=== PATIENT | female | born 1975 | race Caucasian/White ===

== ENCOUNTER 2019-08-28 21:15 | Emergency (ER) | payer OTHER ==
[~2019-08-28] VITALS: Ht 160 cm; Wt 63.0 kg
[2019-08-28] MEDS ORDERED: ZOLOFT100 MG PO (21:30)
[2019-08-28] MEDS ORDERED: LOMOTIL TABLET1 EACH PO (23:35)
== END 2019-08-29 00:14 | disposition home or self-care (01) ==
LOC: ED 21:15
DX: R19.7 Diarrhea, unspecified (principal); F32.9 Major depressive disorder, single episode, unspecified; F17.200 Nicotine dependence, unspecified, uncomplicated; Z79.899 Other long term (current) drug therapy
CPT/HCPCS: 80053; 85025; 96360; 96361; 99284-25; J7030

== ENCOUNTER 2021-06-22 23:36 | Emergency (ER) | payer OTHER ==
[~2021-06-22] VITALS: Ht 160 cm; Wt 62.3 kg
[~2021-06-22 23:36] MED LIST: BACTRIM DS TAB1 EACH PO; LOMOTIL TABLET1 EACH PO; MINIPRESS1 MG PO; OMEPRAZOLE20 MG PO; SEROQUEL50 MG PO; VISTARIL50 MG PO; ZOLOFT100 MG PO
--- OUTSIDE RECORDS SUMMARY | 2021-06-22 23:44 | XMS ---
PreManage Notification: JOY LOZANO Security Instructor Of Nursing Events No recent Security Events currently on file CRITERIA MET - ED - Positive COVID-19 Lab Result - [facility] CARE PROVIDERS SNOW CHAU Nurse Practitioner: Current PHONE: Unknown Jaqueline Robles Nurse Practitioner: Current PHONE: [phone] [facility] Federally Qualified 07/[facility]/2017-[facility] ([facility]) PHONE: [phone] Stefania Barrientos Manager Management/Desktop Architect Current [facility] TEAM PHONE: Unknown Ruben has no Care Guidelines for this patient. Janet VISIT COUNT (12 MO.) 1 ROLAND Steel TOTAL 1 NOTE: Visits indicate total known visits. ED/UCC VISIT TRACKING (12 MO.) 06/22/2021 23:37 [facility] [place] TYPE: Emergency COMPLAINT: - LEFT BREAST AND ARMPIT PAIN INPATIENT VISIT TRACKING (12 MO.) No inpatient visits to display in this time frame [id number]
[2021-06-22] MEDS ORDERED: OXYCODON-ACETA1 EAC2 PO (23:50)
[2021-06-23] MEDS ORDERED: HYDROCODON-ACE1 EAC8 PO (00:25)
[2021-06-23] MEDS ORDERED: ONDANSETRON ODT8 MG PO (00:25)
[2021-07-03] MEDS ORDERED: IBUPROFEN800 MG PO (14:58)
[2021-07-04] MEDS ORDERED: IBUPROFEN600 MG PO (11:52)
[2021-07-04] MEDS ORDERED: HYDROCODON-ACE1 EA10 PO (11:52)
[2021-07-04] MEDS ORDERED: ACETAMINOPHEN500 MG PO (11:52)
== END 2021-06-23 00:51 | disposition home or self-care (01) ==
LOC: ED 23:36
DX: N64.4 Mastodynia (principal); F32.9 Major depressive disorder, single episode, unspecified; Z79.891 Long term (current) use of opiate analgesic; Z79.899 Other long term (current) drug therapy
CPT/HCPCS: 99283; A9270

== ENCOUNTER 2021-07-18 22:18 | Emergency (ER) | payer OTHER ==
[~2021-07-18] VITALS: Ht 160 cm; Wt 62.1 kg
[~2021-07-18 22:18] MED LIST changes: +ACETAMINOPHEN500 MG PO; +HYDROCODON-ACE1 EA10 PO; +HYDROCODON-ACE1 EAC8 PO; +IBUPROFEN600 MG PO; +IBUPROFEN800 MG PO; +ONDANSETRON ODT8 MG PO; +OXYCODON-ACETA1 EAC2 PO
--- OUTSIDE RECORDS SUMMARY | 2021-07-18 22:24 | XMS ---
PreManage Notification: JOY LOZANO Security Hollow Tile Partition Erector Events No recent Security Events currently on file CRITERIA MET - [facility] - 2 Visits in 30 Days CARE PROVIDERS SNOW CHAU Nurse Practitioner: Family Current PHONE: Unknown Jaqueline Robles Nurse Practitioner: Current PHONE: [phone] [facility]: Federally Qualified 07/02/2017-[facility] ([facility]) PHONE: [phone] Stefania Barrientos Bird Raiser/Clinical Partner Current [facility] TEAM PHONE: Unknown Ruben has no Care Guidelines for this patient. Janet VISIT COUNT (12 MO.) 2 ROLAND Steel TOTAL 2 NOTE: Visits indicate total known visits. ED/UCC VISIT TRACKING (12 MO.) 07/18/2021 22:18 [facility] [place] TYPE: Emergency COMPLAINT: - OVERDOSE 06/22/2021 23:[address] [facility] [place] TYPE: Emergency COMPLAINT: - LEFT BREAST AND ARMPIT PAIN DIAGNOSES: - Other intermediate (current) drug therapy - Major depressive disorder, single episode, unspecified - lobsterman (current) use of opiate analgesic - Mastodynia INPATIENT VISIT TRACKING (12 MO.) No inpatient visits to display in this time frame [id number]
--- NOTE | 2021-07-21 17:18 | EKG ---
[facility] [address] [place] [address] Signed Normal sinus rhythm ST \T\ T wave abnormality, consider anterolateral ischemia Prolonged QT Abnormal ECG When compared with ECG of 30-MAY-2021 08:57, T wave inversion more evident in Inferior leads T wave inversion now evident in Anterolateral leads Confirmed by CAROL GUAMAN MD ([id number]) on 07/21/2021 5:18:43 PM Electronically Signed By: CAROL GUAMAN MD 07/21/21 1718 PATIENT NAME: JOY LOZANO Electrocardiogram DATE OF : 79 PHYSICIAN: CAROL GUAMAN MD REPORT #: [id number] REPORT IS CONFIDENTIAL AND NOT TO BE RELEASED WITHOUT AUTHORIZATION
--- NOTE | 2021-07-21 17:19 | EKG ---
[facility] [address] [facility] [place] [address] Signed Normal sinus rhythm with sinus arrhythmia Nonspecific T wave abnormality Prolonged QT Abnormal ECG When compared with ECG of 18-JUL-2021 22:25, (Unconfirmed) Vent. rate has decreased BY 34 BPM Nonspecific T wave abnormality has replaced inverted T waves in Inferior leads T wave inversion less evident in Anterolateral leads Confirmed by CAROL GUAMAN MD ([id number]) on 07/21/2021 5:18:50 PM Electronically Signed By: CAROL GUAMAN MD 07/21/21 1719 PATIENT NAME: JOY LOZANO Electrocardiogram DATE OF : [birth year] PHYSICIAN: CAROL GUAMAN MD REPORT #: [id number] REPORT IS CONFIDENTIAL AND NOT TO BE RELEASED WITHOUT AUTHORIZATION
== END 2021-07-19 11:38 | disposition home or self-care (01) ==
LOC: ED 22:18
DX: T43.592A Poisoning by other antipsychotics and neuroleptics, intentional self-harm, initial encounter (principal); T44.6X2A Poisoning by alpha-adrenoreceptor antagonists, intentional self-harm, initial encounter; F32.A Depression, unspecified; Z85.3 Personal history of malignant neoplasm of breast; F17.200 Nicotine dependence, unspecified, uncomplicated; Z91.041 Radiographic dye allergy status; Z79.899 Other long term (current) drug therapy; Z79.891 Long term (current) use of opiate analgesic; Z20.822 Contact with and (suspected) exposure to COVID-19
CPT/HCPCS: 36415; 80053; 81001; 84703; 85025; 85610; 87502; 93005; 93010; 99285-25; A9270; G0480; J7030; U0003

== ENCOUNTER 2021-07-21 15:19 | Emergency (ER) | payer OTHER ==
[~2021-07-21] VITALS: Ht 160 cm; Wt 62.6 kg
--- OUTSIDE RECORDS SUMMARY | 2021-07-21 15:29 | XMS ---
PreManage Notification: JOY LOZANO Security Automobile Mechanic Events No recent Security Events currently on file CRITERIA MET - [facility] - 2 Visits in 30 Days CARE PROVIDERS ALEX BERG Physician V Block Saw Operator 07/20/2021-Current PHONE: [phone] SNOW CHAU Nurse Practitioner: Current PHONE: Unknown Jaqueline Robles Nurse Practitioner: Current PHONE: [phone] [facility]: Federally Qualified 07/02/2017-[facility] ([facility] PHONE: [phone] Stefania Barrientos Primer Inspector/Edge Inker Uppers [facility] PHONE: Unknown Ruben has no Care Guidelines for this patient. EBrittaDBritta VISIT COUNT (12 MO.) 3 ROLAND Steel TOTAL 3 NOTE: Visits indicate total known visits. ED/UCC VISIT TRACKING (12 MO.) 07/21/2021 15:20 [facility] [place] TYPE: Emergency COMPLAINT: - SUICIDAL IDEATIONS 07/18/2021 22:18 [facility] [place] TYPE: Emergency COMPLAINT: - OVERDOSE DIAGNOSES: - Radiographic dye allergy status - Poisoning by other antipsychotics and neuroleptics, accidental (unintentional), initial encounter - Nicotine dependence, unspecified, uncomplicated - Depression, unspecified - long term acute care registered nurse (current) use of opiate analgesic - Other terminal supervisor (current) drug therapy - Poisoning by other antipsychotics and neuroleptics, intentional self-harm, initial encounter - Personal history of malignant neoplasm of breast - Poisoning by alpha-adrenoreceptor antagonists, intentional self-harm, initial encounter - Contact with and (suspected) exposure to COVID-19 06/22/2021 23:37 [facility] [place] TYPE: Emergency COMPLAINT: - LEFT BREAST AND ARMPIT PAIN DIAGNOSES: - Other usp (current) drug therapy - Major depressive disorder, single episode, unspecified - shelter (current) use of opiate analgesic - Mastodynia INPATIENT VISIT TRACKING (12 MO.) No inpatient visits to display in this time frame [id number]
--- NOTE | 2021-07-24 14:07 | EKG ---
[facility] [address] [facility] [place], [place] [address] Signed Sinus bradycardia with sinus arrhythmia Otherwise normal ECG No previous ECGs available Confirmed by CAROL GUAMAN MD ([id number]) on 07/24/2021 2:06:42 PM Electronically Signed By: CAROL GUAMAN MD 07/24/21 1407 PATIENT NAME: CARLO MEDINAISTHAYESJOY JAMMIE Electrocardiogram DATE OF : [birth year] PHYSICIAN: CAROL GUAMAN MD REPORT #: [id number] REPORT IS CONFIDENTIAL AND NOT TO BE RELEASED WITHOUT AUTHORIZATION
== END 2021-07-22 11:16 ==
LOC: ED 15:19
DX: S60.221A Contusion of right hand, initial encounter (principal); R45.851 Suicidal ideations; W22.8XXA Striking against or struck by other objects, initial encounter; Z85.3 Personal history of malignant neoplasm of breast; F17.200 Nicotine dependence, unspecified, uncomplicated; Z91.041 Radiographic dye allergy status; Z79.899 Other long term (current) drug therapy; Z20.822 Contact with and (suspected) exposure to COVID-19
CPT/HCPCS: 36415; 73130; 80053; 81001; 84443; 84703; 85025; 87502; 93005; 93010; 96372; 99285-25; A9270; C9803; G0480; J1200; J1630; U0003

== ENCOUNTER 2021-07-28 18:06 | Emergency (ER) | payer OTHER ==
[~2021-07-28] VITALS: Ht 160 cm; Wt 61.7 kg
--- OUTSIDE RECORDS SUMMARY | 2021-07-28 18:14 | XMS ---
PreManage Notification: JOY LOZANO Security Fruit Peeler Events No recent Security Events currently on file CRITERIA MET - [facility] - 2 Visits in 30 Days CARE PROVIDERS ALEX BERG Physician Mobile Lounge Driver Or Operator 07/20/2021-Current PHONE: [phone] SNOW CHAU Nurse Practitioner: Current PHONE: Unknown Jaqueline Robels Nurse Practitioner: Current PHONE: [phone] [facility]: Federally Qualified 07/02/2017-[facility] ([facility]) PHONE: [phone] Stefania Barrientos Cement Fittings Maker/Trauma Counsellor [facility] PHONE: Unknown Ruben has no Care Guidelines for this patient. EBrittaDrBitta VISIT COUNT (12 MO.) Rasheeda Steel TOTAL 4 NOTE: Visits indicate total known visits. ED/UCC VISIT TRACKING (12 MO.) 07/28/2021 18:08 [facility] [place] TYPE: Emergency COMPLAINT: - ARM INJURY, POSS CHEST INFECTION 07/21/2021 15:20 [facility] [place] TYPE: Emergency COMPLAINT: - HAND PN, SUICIDAL IDEATIONS DIAGNOSES: - Contusion of right hand, initial encounter - Contact with and (suspected) exposure to COVID-19 - Suicidal ideations - Other intermediate project manager (current) drug therapy - Radiographic dye allergy status - Nicotine dependence, unspecified, uncomplicated - Striking against or struck by other objects, initial encounter - Suicidal ideations - Personal history of malignant neoplasm of breast - Contusion of right hand, initial encounter 07/18/2021 22:18 [facility] [place] TYPE: Emergency COMPLAINT: - OVERDOSE DIAGNOSES: - Radiographic dye allergy status - Poisoning by other antipsychotics and neuroleptics, accidental (unintentional), initial encounter - Nicotine dependence, unspecified, uncomplicated - Depression, unspecified - terminal supervisor (current) use of opiate analgesic - Other group home (current) drug therapy - Poisoning by other antipsychotics and neuroleptics, intentional self-harm, initial encounter - Personal history of malignant neoplasm of breast - Poisoning by alpha-adrenoreceptor antagonists, intentional self-harm, initial encounter - Contact with and (suspected) exposure to COVID-19 06/22/2021 23:[address] [facility] [place] TYPE: Emergency COMPLAINT: - LEFT BREAST AND ARMPIT PAIN DIAGNOSES: - Other group home (current) drug therapy - Major depressive disorder, single episode, unspecified - [facility] (current) use of opiate analgesic - Mastodynia INPATIENT VISIT TRACKING (12 MO.) No inpatient visits to display in this time frame [id number]
[2021-07-28] MEDS ORDERED: ABILIFY5 MG PO (19:46)
[2021-07-28] MEDS ORDERED: DOXYCYCLINE HY100 MG PO (23:15)
== END 2021-07-28 23:31 | disposition home or self-care (01) ==
LOC: ED 18:06
DX: T81.49XA Infection following a procedure, other surgical site, initial encounter (principal); N61.0 Mastitis without abscess; S50.12XA Contusion of left forearm, initial encounter; Z85.3 Personal history of malignant neoplasm of breast; F17.200 Nicotine dependence, unspecified, uncomplicated; Z91.041 Radiographic dye allergy status; Z79.899 Other long term (current) drug therapy; W01.0XXA Fall on same level from slipping, tripping and stumbling without subsequent striking against object, initial encounter
CPT/HCPCS: 36415; 73090; 85025; 99283-25; A9270

== ENCOUNTER 2021-08-19 13:37 | Emergency (ER) | payer OTHER ==
[~2021-08-19] VITALS: Ht 160 cm; Wt 61.9 kg
[~2021-08-19 13:37] MED LIST changes: +ABILIFY5 MG PO; +DOXYCYCLINE HY100 MG PO
--- OUTSIDE RECORDS SUMMARY | 2021-08-19 13:44 | XMS ---
PreManage Notification: JOY LOZANO Security Clinical Services Professional Events No recent Security Events currently on file CRITERIA MET - [facility] - 2 Visits in 30 Days CARE PROVIDERS ALEX BERG Physician Motor Grader Operator 07/20/2021-Current PHONE: [phone] SNOW CHAU Nurse Practitioner: Current PHONE: Unknown Jaqueline Robles Nurse Practitioner: Current PHONE: [phone] [facility]: Federally Qualified 07/02/2017-[facility] ([facility]) PHONE: [phone] Stefania Barrientos Assistant Professor Of Education/It Application Administrator [facility] PHONE: Unknown Ruben has no Care Guidelines for this patient. E.DBritta VISIT COUNT (12 MO.) Clive Steel TOTAL 5 NOTE: Visits indicate total known visits. ED/UCC VISIT TRACKING (12 MO.) 08/19/2021 13:38 [facility] [place] TYPE: Emergency COMPLAINT: - MEDICAL CLEARANCE 07/28/2021 18:08 [facility] [place] TYPE: Emergency COMPLAINT: - ARM INJURY, POSS CHEST INFECTION DIAGNOSES: - Mastitis without abscess - Other specified disorders of the skin and subcutaneous tissue - Nicotine dependence, unspecified, uncomplicated - Other terminal computer operator (current) drug therapy - Radiographic dye allergy status - Infection following a procedure, other surgical site, initial encounter - Contusion of left forearm, initial encounter - Personal history of malignant neoplasm of breast - Fall on same level from slipping, tripping and stumbling without subsequent striking against object, initial encounter 07/21/2021 15:20 [facility] [place] TYPE: Emergency COMPLAINT: - HAND PN, SUICIDAL IDEATIONS DIAGNOSES: - Contusion of right hand, initial encounter - Contact with and (suspected) exposure to COVID-19 - Suicidal ideations - Other correction (current) drug therapy - Radiographic dye allergy [...] dependence, unspecified, uncomplicated - Depression, unspecified - vermin exterminator (current) use of opiate analgesic - Other terminal computer operator (current) drug therapy - Poisoning by other antipsychotics and neuroleptics, intentional self-harm, initial encounter - Personal history of malignant neoplasm of breast - Poisoning by alpha-adrenoreceptor antagonists, intentional self-harm, initial encounter - Contact with and (suspected) exposure to COVID-19 06/22/2021 23:37 [facility] [place] TYPE: Emergency COMPLAINT: - LEFT BREAST AND ARMPIT PAIN DIAGNOSES: - Other terminal computer operator (current) drug therapy - Major depressive disorder, single episode, unspecified - vermin exterminator (current) use of opiate analgesic - Mastodynia INPATIENT VISIT TRACKING (12 MO.) No inpatient visits to display in this time frame [id number]
[2021-08-19] MEDS ORDERED: MINIPRESS2 MG PO (14:00)
[2021-08-19] MEDS ORDERED: HYDROXYZINE HCL50 MG PO (14:01)
[2021-08-19] MEDS ORDERED: OMEPRAZOLE20 MG PO (14:01)
== END 2021-08-19 16:30 | disposition home or self-care (01) ==
LOC: ED 13:37
DX: R45.851 Suicidal ideations (principal); Z85.3 Personal history of malignant neoplasm of breast; F43.10 Post-traumatic stress disorder, unspecified; F17.200 Nicotine dependence, unspecified, uncomplicated; Z91.041 Radiographic dye allergy status; Z79.899 Other long term (current) drug therapy
CPT/HCPCS: 36415; 80053; 81001; 84443; 84703; 85025; 87591; 99284; G0480

== ENCOUNTER 2021-09-11 00:02 | Emergency (ER) | payer OTHER ==
[~2021-09-11] VITALS: Ht 160 cm; Wt 61.9 kg
[~2021-09-11 00:02] MED LIST changes: +HYDROXYZINE HCL50 MG PO; +MINIPRESS2 MG PO
--- OUTSIDE RECORDS SUMMARY | 2021-09-11 00:10 | XMS ---
PreManage Notification: JOY LOZANO Security Jewelry Repairer Events No recent Security Events currently on file CRITERIA MET - 6 ED Visits in 6 Months - [facility] - 2 Visits in 30 Days CARE PROVIDERS ALEX BERG Physician Enterprise Sales Executive 07/20/2021-Current PHONE: [phone] SNOW CHAU Nurse Practitioner: Family Current PHONE: Unknown Jaqueline Robles Nurse Practitioner: Family Current PHONE: [phone] [facility]: Federally Qualified 07/02/2017-[facility] ([facility]) PHONE: [phone] Stefania Barrientos Rotary Drum Dyer/Swage Tender [facility] PHONE: Unknown Ruben has no Care Guidelines for this patient. EBrittaDBritta VISIT COUNT (12 MO.) Mari Steel TOTAL 6 NOTE: Visits indicate total known visits. ED/UCC VISIT TRACKING (12 MO.) 09/11/2021 00:03 [facility] TYPE: Emergency COMPLAINT: - OD 08/19/2021 13:38 [facility] [place] TYPE: Emergency COMPLAINT: - MEDICAL CLEARANCE DIAGNOSES: - Personal history of malignant neoplasm of breast - Suicidal ideations - Post-traumatic stress disorder, unspecified - Radiographic dye allergy status - Nicotine dependence, unspecified, uncomplicated - Other continuous churn buttermaker (current) drug therapy 07/28/2021 18:08 [facility] [place] TYPE: Emergency COMPLAINT: - ARM INJURY, POSS CHEST INFECTION DIAGNOSES: - Mastitis without abscess - Other specified disorders of the skin and subcutaneous tissue - Nicotine dependence, unspecified, uncomplicated - Other jail (current) drug therapy - Radiographic dye allergy [...] to COVID-19 - Suicidal ideations - Other continuous churn buttermaker (current) drug therapy - Radiographic dye allergy [...] unspecified, uncomplicated - Depression, unspecified - terminal carman (current) use of opiate analgesic - Other continuous churn buttermaker (current) drug therapy - Poisoning by other antipsychotics and neuroleptics, intentional self-harm, initial encounter - Personal history of malignant neoplasm of breast - Poisoning by alpha-adrenoreceptor antagonists, intentional self-harm, initial encounter - Contact with and (suspected) exposure to COVID-19 06/22/2021 23:37 [facility] [place] TYPE: Emergency COMPLAINT: - LEFT BREAST AND ARMPIT PAIN DIAGNOSES: - Other jail (current) drug therapy - Major depressive disorder, single episode, unspecified - terminal carman (current) use of opiate analgesic - Mastodynia INPATIENT VISIT TRACKING (12 MO.) No inpatient visits to display in this time frame [email or web address]
--- NOTE | 2021-09-11 14:04 | EKG ---
[facility] [address] [place] [address] Signed Sinus bradycardia Abnormal ECG When compared with ECG of 11-SEP-2021 00:08, (Unconfirmed) Vent. rate has decreased BY [address] no longer depressed in Inferior leads T wave inversion no longer evident in Inferior leads T wave inversion no longer evident in Lateral leads QT has shortened Confirmed by CAROL GUAMAN MD ([id number]) on 09/11/2021 2:04:42 PM Electronically Signed By: CAROL GUAMAN MD 09/11/21 1404 PATIENT NAME: JOY LOZANO Electrocardiogram DATE OF : [birth year] PHYSICIAN: CAROL GUAMAN MD REPORT #: [id number] REPORT IS CONFIDENTIAL AND NOT TO BE RELEASED WITHOUT AUTHORIZATION
--- NOTE | 2021-09-11 14:04 | EKG ---
[facility] [address] [place] [address] \T\ T wave abnormality, consider inferior ischemia ST \T\ T wave abnormality, consider anterolateral ischemia Prolonged QT Abnormal ECG When compared with ECG of 21-JUL-2021 20:28, Significant changes have occurred Confirmed by CAROL GUAMAN MD ([id number]) on 09/11/2021 2:04:01 PM Electronically Signed By: CAROL GUAMAN MD 09/11/21 1404 PATIENT NAME: JOY LOZANO Electrocardiogram DATE OF : 79 PHYSICIAN: CAROL GUAMAN MD REPORT #: [id number] REPORT IS CONFIDENTIAL AND NOT TO BE RELEASED WITHOUT AUTHORIZATION
== END 2021-09-12 20:30 ==
LOC: ED 00:02
DX: T43.592A Poisoning by other antipsychotics and neuroleptics, intentional self-harm, initial encounter (principal); F17.200 Nicotine dependence, unspecified, uncomplicated; Z91.041 Radiographic dye allergy status; Z79.899 Other long term (current) drug therapy; Z20.822 Contact with and (suspected) exposure to COVID-19
CPT/HCPCS: 36415; 80053; 81001; 83735; 84703; 85025; 87502; 93005; 93010; G0480; J7030; U0003

== ENCOUNTER 2022-01-02 16:54 | Emergency (ER) | payer OTHER ==
[~2022-01-02] VITALS: Ht 160 cm; Wt 57.0 kg
--- OUTSIDE RECORDS SUMMARY | 2022-01-02 17:02 | XMS ---
PreManage Notification: JOY LOZANO Security Director Electrical Engineering Events No recent Security Events currently on file CRITERIA MET - 6 ED Visits in 6 Months CARE PROVIDERS SNOW CHAU Nurse Practitioner: Current PHONE: Unknown Jaqueline Robles-Simran Nurse Practitioner: Current PHONE: [phone] Stefania Barrientos Market Research Consultant/Central Control Room Operator [facility] TEAM PHONE: Unknown Ruben has no Care Guidelines for this patient. E.D. VISIT COUNT (12 MO.) 7 ROLAND Steel TOTAL 7 NOTE: Visits indicate total known visits. ED/UCC VISIT TRACKING (12 MO.) 01/02/2022 16:56 [facility] [place] TYPE: Emergency COMPLAINT: - RT WRIST INJURY 09/11/2021 00:03 [facility] [place] TYPE: Emergency COMPLAINT: - OD DIAGNOSES: - Nicotine dependence, unspecified, uncomplicated - Poisoning by other antipsychotics and neuroleptics, intentional self-harm, initial encounter - Other retirement (current) drug therapy - Radiographic dye allergy status - Contact with and (suspected) exposure to COVID-19 08/19/2021 13:38 [facility] [place] TYPE: Emergency COMPLAINT: - MEDICAL CLEARANCE DIAGNOSES: - Nicotine dependence, unspecified, uncomplicated - Post-traumatic stress disorder, unspecified - Personal history of malignant neoplasm of breast - Other retirement (current) drug therapy - Radiographic dye allergy status - Suicidal ideations 07/28/2021 18:08 [facility] [place] TYPE: Emergency COMPLAINT: - ARM INJURY, POSS CHEST INFECTION DIAGNOSES: - Radiographic dye allergy status - Nicotine dependence, unspecified, uncomplicated - Mastitis without abscess - Personal history of malignant neoplasm of breast - Infection following a procedure, other surgical site, initial encounter - Other retirement (current) drug therapy - Other specified disorders of the skin and subcutaneous tissue - Fall on same level from slipping, tripping and stumbling without subsequent striking against object, initial encounter - Contusion of left forearm, initial encounter 07/21/2021 15:20 [facility] [place] TYPE: Emergency COMPLAINT: - HAND PN, SUICIDAL IDEATIONS DIAGNOSES: - Radiographic dye allergy status - Suicidal ideations - Contusion of right hand, initial encounter - Contusion of right hand, initial encounter - Suicidal ideations - Nicotine dependence, unspecified, uncomplicated - Other retirement (current) drug therapy - Contact with and (suspected) exposure to COVID-19 - Personal history of malignant neoplasm of breast - Striking against or struck by other objects, initial encounter 07/18/2021 22:18 [facility] [place] TYPE: Emergency COMPLAINT: - OVERDOSE DIAGNOSES: - retirement (current) use of opiate analgesic - Nicotine dependence, unspecified, uncomplicated - Contact with and (suspected) exposure to COVID-19 - Radiographic dye allergy status - Personal history of malignant neoplasm of breast - Other terminal gauger (current) drug therapy - Depression, unspecified - Poisoning by other antipsychotics and neuroleptics, accidental (unintentional), initial encounter - Poisoning by alpha-adrenoreceptor antagonists, intentional self-harm, initial encounter - Poisoning by other antipsychotics and neuroleptics, intentional self-harm, initial encounter 06/22/2021 23:37 [facility] [place] TYPE: Emergency COMPLAINT: - LEFT BREAST AND ARMPIT PAIN DIAGNOSES: - retirement (current) use of opiate analgesic - Other terminal gauger (current) drug therapy - Mastodynia - Major depressive disorder, single episode, unspecified INPATIENT VISIT TRACKING (12 MO.) 09/12/2021 23:43 [facility] DIAGNOSES: - Unspecified psychosis not due to a substance or known physiological condition - Major depressive disorder, recurrent severe without psychotic features [id number]
[2022-01-02] MEDS ORDERED: ULTRAM50 MG PO (19:44)
[2022-01-08] MEDS ORDERED: HYDROCODON-ACE1 EA11 PO (11:58)
== END 2022-01-02 20:03 | disposition home or self-care (01) ==
LOC: ED 16:54
DX: S92.311A Displaced fracture of first metatarsal bone, right foot, initial encounter for closed fracture (principal); F17.200 Nicotine dependence, unspecified, uncomplicated; Z91.041 Radiographic dye allergy status; W20.8XXA Other cause of strike by thrown, projected or falling object, initial encounter
CPT/HCPCS: 73140; A9270; J1885

== ENCOUNTER 2022-07-13 16:28 | Emergency (ER) | payer OTHER ==
[~2022-07-13] VITALS: Ht 160 cm; Wt 57.6 kg
[~2022-07-13 16:28] MED LIST changes: +HYDROCODON-ACE1 EA11 PO; +ULTRAM50 MG PO
[2022-07-14 14:01] VITALS: BP 104/51
--- NOTE | 2022-07-15 16:42 | EKG ---
[facility] [address] [facility] [place] [address] Signed Normal sinus rhythm ST \T\ T wave abnormality, consider anterolateral ischemia Abnormal ECG When compared with ECG of 11-SEP-2021 10:27, Vent. rate has increased BY 30 BPM Confirmed by CAROL GUAMAN MD ([id number]) on 07/15/2022 4:42:28 PM Electronically Signed By: CAROL GUAMAN MD 07/15/22 1642 PATIENT NAME: JOY LOZANO Electrocardiogram DATE OF : 79 PHYSICIAN: CAROL GUAMAN MD REPORT #: [id number] REPORT IS CONFIDENTIAL AND NOT TO BE RELEASED WITHOUT AUTHORIZATION
== END 2022-07-14 14:03 | disposition home or self-care (01) ==
LOC: ED 16:28
DX: R45.851 Suicidal ideations (principal); F17.200 Nicotine dependence, unspecified, uncomplicated; Z91.041 Radiographic dye allergy status; Z79.899 Other long term (current) drug therapy
CPT/HCPCS: 36415; 80053; 84443; 84703; 85025; 93005; 93010; G0480; J7030